=== PATIENT | female | born 1965 | race Caucasian/White ===

== ENCOUNTER → 2019-11-17 07:29 | Outpatient (CLI) | payer OTHER, SELFPAY ==
--- NOTE | ~2019-11-17 | US_ITS ---
EXAMINATION: US abdomen complete EXAM DATE: 11/17/2019 08:18 INDICATION: Elevated levels of serum enzymes. TECHNIQUE: Multiple grayscale and Doppler images of the complete abdomen were obtained (by a technolo tia who performed the scan) and subsequently reviewed. There is no prior study for comparison. FINDINGS: The abdominal aorta is normal in caliber. Visualized portion IVC is patent. The pancreatic head a nd body are normal in appearance. The pancreatic tail is not visualized. The liver has normal echogenicity and contour. There are no focal liver lesions identified. There is no evidence of intrahepatic biliary duct dilation. Portal venous flow was seen in the hepatopedal , normal direction and has normal Doppler waveform. Common bile duct measures 3 mm, which is normal. The gallbladder fossa is unremarkable. Right kidney: There is normal contour and echogenicity. It measures 10.3 x 5.0 x 4.9 centimeters. There are no focal renal lesions identified. There is no hydronephrosis. Left kidney: There is normal contour and echogenicity. It measures 10.7 x 5.7 x 4.9 centimeters. T here are no focal renal lesions identified. There is no hydronephrosis. The spleen measures 7.5 centimeters and is morphologically normal. IMPRESSION: 1. Unremarkable complete abdominal ultrasound exam. Reviewed, dictated and finalized at location A. HAND
== END ==
PROVIDERS: PCP Physician Assistant; Visit Provider Physician Assistant
DX: R74.8 Abnormal levels of other serum enzymes (principal)
CPT/HCPCS: 76700

== ENCOUNTER → 2021-02-03 16:55 | Outpatient (CLI) | payer OTHER, SELFPAY ==
--- NOTE | ~2021-02-03 | XR_ITS ---
EXAMINATION: XR shoulder RT min 2V DATE: 02/03/2021 18:53 INDICATION: Right shoulder pain. TECHNIQUE: 4 views of right shoulder were obtained. COMPARISON: None. FINDINGS: Bone alignment is normal. No fracture. There is mild osteoarthritis of glenohumeral joint a nd severe osteoarthritis of acromioclavicular joint. IMPRESSION: 1. Polyarticular osteoarthritis. Reviewed, dictated and finalized at location A.
== END ==
PROVIDERS: PCP Family Medicine; Visit Provider Physician Assistant
DX: M19.011 Primary osteoarthritis, right shoulder (principal)
CPT/HCPCS: 73030

== ENCOUNTER → 2021-06-26 16:09 | Outpatient (REF) | payer OTHER, SELFPAY | LOC: ANHLAB 16:09 | PROVIDERS: PCP Family Medicine; Visit Provider Nurse Practitioner | DX: R22.9 Localized swelling, mass and lump, unspecified (principal) | CPT/HCPCS: 88304 ==

== ENCOUNTER → 2022-03-23 10:33 | Outpatient (CLI) | payer OTHER, SELFPAY ==
--- NOTE | ~2022-03-23 | MM_ITS ---
EXAMINATION: MM screening abdoulaye BI w leroy HISTORY: Screening mammogram TECHNIQUE: Craniocaudal and mediolateral oblique 3-D tomosynthesis images were obtained and synthetic 2-D images were generated. CAD analysis was submitted and interpreted. COMPARISON: 05/13/2018 bilateral screening mammogram 08/20/2016 and 01/26/2016 diagnostic right mammogram and limited right breast ultrasound / bilateral screening mammogram examination BREAST PARENCHYMAL COMPOSITION: The breasts are almost entirely fatty. FINDINGS: There is no evidence of suspicious mass, calcification, or architectural distortion to sugg est malignancy in either breast. There has been no suspicious interval change. IMPRESSION: 1. No mammographic evidence of malignancy. 2. Recommend routine screening mammography in one year. BI-RADS Category 1: Negative Reviewed, dictated and finalized at location A.
== END ==
PROVIDERS: PCP Family Medicine; Visit Provider Nurse Practitioner Family
DX: Z12.31 Encounter for screening mammogram for malignant neoplasm of breast (principal)
CPT/HCPCS: 77063; 77067

== ENCOUNTER → 2023-03-11 10:03 | Outpatient (CLI) | payer OTHER, SELFPAY ==
--- NOTE | ~2023-03-11 | XR_ITS ---
XR knee RT min 4V 03/11/2023 11:23 Indication: Right knee pain Procedure: 4 views right knee Comparison: No prior studies for comparison. Findings: No fracture, subluxation or dislocation. No joint effusion. There is anatomic alignment. No significant joint space narrowing. Impression: 1: No significant bone or joint abnormality. Reviewed, dictated and finalized at location [] Impression: 1: No significant bone or joint abnormality.
--- NOTE | ~2023-03-11 | XR_ITS ---
XR knee LT min 4V 03/11/2023 11:23 INDICATION: Left knee pain PROCEDURE: 4 views left knee COMPARISON: No prior studies for comparison. FINDINGS: Fracture, dislocation or subluxation is not identified. No significant joint effusion. The soft tissues appear within normal limits. No foreign bodies are identified. IMPRESSION: 1: NO ACUTE BONE OR JOINT ABNORMALITY IDENTIFIED. Reviewed, dictated and finalized at location []
== END ==
PROVIDERS: PCP Family Medicine; Visit Provider Physician Assistant
DX: M25.562 Pain in left knee (principal); M25.561 Pain in right knee
CPT/HCPCS: 73564

== ENCOUNTER → 2023-06-04 12:23 | Outpatient (CLI) | payer OTHER, SELFPAY ==
--- NOTE | ~2023-06-04 | MR_ITS ---
EXAMINATION: MR knee LT wo con DATE: 06/04/2023 13:09 INDICATION: Pain in left knee, generalized pain and swelling, no history of trauma. TECHNIQUE: Magnetic resonance imaging (MRI) of the left knee was performed without intravenous contra st. Sequences included axial PD-weighted FS FSE, coronal PD-weighted FSE and PD-weighted FS FSE, sagi ttal PD-weighted FSE, and sagittal T2-weighted FS FSE. COMPARISON: X-ray left knee 03/11/2023 FINDINGS: Medial compartment: Blunting and fraying of the apex of the posterior horn. Small apical undersurface tear of the menisca l body. Moderate diffuse cartilage thinning. Mild osteophytosis. Lateral compartment: Fraying of the apex of the meniscal body. Mild diffuse cartilage thinning. Mild osteophytosis. Patellofemoral compartment: Focal area of full-thickness cartilage signal abnormality on the median ridge. Mild diffuse cartilage thinning. Mild osteophytosis. Retinacula intact. Ligaments and tendons: The ACL, PCL, MCL, and LCL are intact. Remaining flexor and extensor tendons are intact. Fluid: Moderate volume joint fluid. Osseous/other: No suspicious focal or diffuse marrow signal. IMPRESSION: Small apical tear of the posterior horn, medial meniscus. Small oblique undersurface tear of the body of the medial meniscus. Apical fraying of the menisci bilaterally. Tricompartmental osteoarthritis, moderate in the medial compartment. Moderate left knee joint effusion. Reviewed, dictated and finalized at location K. IMPRESSION: Small apical tear of the posterior horn, medial meniscus. Small oblique undersu rface tear of the body of the medial meniscus. Apical fraying of the menisci bi laterally. Tricompartmental osteoarthritis, moderate in the medial compartment. Moderate left knee joint effusion.
--- NOTE | ~2023-06-04 | MR_ITS ---
EXAMINATION: MR knee RT wo con DATE: 06/04/2023 12:58 INDICATION: Right knee pain. TECHNIQUE: Magnetic resonance imaging (MRI) of the right knee was performed without intravenous contr ast. Sequences included axial PD-weighted FS FSE, coronal PD-weighted FSE and PD-weighted FS FSE, sag ittal PD-weighted FSE, and sagittal T2-weighted FS FSE. COMPARISON: Right knee radiographs 03/11/2023 FINDINGS: Medial compartment: There is a complex tear involving posterior horn of medial meniscus. There is shallow partial-thickne ss cartilage loss of tibial condyle and femoral condyle. There are tiny osteophytes. Lateral compartment: Lateral meniscus is normal. There is cartilage surface irregularity of tibial condyle and femoral con dyle. Patellofemoral compartment: There is cartilage surface irregularity of patella and trochlea. There are tiny osteophytes. Ligaments and tendons: The anterior and posterior cruciate ligaments are normal. Medial collateral ligament is normal. There are changes of prior sprain of fibular collateral ligament characterized by increased signal intensi ty and thickening proximally. There is mild patellar tendinopathy. Fluid: There is a moderate-sized knee joint effusion. There is mild prepatellar and superficial infrapatella r bursitis. IMPRESSION: 1. Moderate tricompartment chondrosis. 2. Tear of medial meniscus. 3. Moderate-sized knee joint effusion. Reviewed, dictated and finalized at location A.
== END ==
PROVIDERS: PCP Family Medicine; Visit Provider Physician Assistant
DX: M25.461 Effusion, right knee (principal); M25.462 Effusion, left knee; S83.241A Other tear of medial meniscus, current injury, right knee, initial encounter; X58.XXXA Exposure to other specified factors, initial encounter; M17.12 Unilateral primary osteoarthritis, left knee
CPT/HCPCS: 73721

== ENCOUNTER → 2023-08-19 14:53 | Outpatient (CLI) | payer OTHER, SELFPAY ==
--- NOTE | ~2023-08-19 | MM_ITS ---
EXAMINATION: MM screening abdoulaye BI w leroy HISTORY: Screening mammogram TECHNIQUE: Craniocaudal and mediolateral oblique 3-D tomosynthesis images were obtained and synthetic 2-D images were generated. CAD analysis was submitted and interpreted. COMPARISON: 03/19/2022, 05/13/2018 bilateral screening mammogram examinations BREAST PARENCHYMAL COMPOSITION: The breasts are almost entirely fatty. FINDINGS: There is no evidence of suspicious mass, calcification, or architectural distortion to sugg est malignancy in either breast. There has been no suspicious interval change. IMPRESSION: 1. No mammographic evidence of malignancy. 2. Recommend routine screening mammography in one year. 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
== END ==
PROVIDERS: PCP Physician Assistant; Visit Provider Physician Assistant
DX: Z12.31 Encounter for screening mammogram for malignant neoplasm of breast (principal)
CPT/HCPCS: 77063; 77067

== ENCOUNTER 2025-08-11 12:41 | Outpatient (CLI) | payer OTHER, SELFPAY ==
--- NOTE | ~2025-08-11 | MM_ITS ---
EXAMINATION: MM screening abdoulaye BI w leroy HISTORY: Screening TECHNIQUE: Craniocaudal and mediolateral oblique 3-D tomosynthesis images were obtained and synthetic 2-D images were generated. CAD analysis was submitted and interpreted. COMPARISON: Comparison to multiple prior studies sequentially, with oldest reviewed study dated 01/13/2016. BREAST PARENCHYMAL COMPOSITION: Not Dense: The breasts are almost entirely fatty. FINDINGS: There is no evidence of suspicious mass, calcification, or architectural distortion to suggest malignancy in either breast. There has been no suspicious interval change. IMPRESSION: 1. No mammographic evidence of malignancy. 2. Recommend routine screening mammography in one year. BI-RADS Category 1: Negative Reviewed, dictated and finalized at location B. IFIED INCOME TAX PREPARER
--- OUTSIDE RECORDS SUMMARY | 2025-08-11 13:43 | XMS_ITS | Clinical Summary ---
Author Organization [facility] Address [address] [place] [id number] Care Team Providers Care Grades 9 Through 12 Teacher Name Role Phone Unavailable Primary Care Provider Unavailabl e Social History Tobacco Use Types Packs/Day Years Used Date Smoking Tobacco: Never Assessed Comments Unknown Sex and Gender Information Value Date Recorded Sex Assigned at Not on file Legal Sex Female 8:13 PM CDT Gender Identity Not on file Sexual Orientation Not on file Last Filed Vital Signs Vital Sign Reading Time Taken Comments Blood Pressure 120/78 10/16/2012 4:13 PM [employer] Pulse - - Temperature - - Respiratory Rate - - Oxygen Saturation - - Inhaled Oxygen Concentration - - Weight - - Height - - Body Mass Index - - Plan of Treatment Health Maintenance Due Date Last Done Comments Cervical Cancer Screening Pa p Smear (Age 30 to 64) Every 3 Years 1964 Colorectal Cancer Screening Colonoscopy (10 Years) 1964 Annual Physical 01/21/1967 Hepatitis C 01/21/1982 DTaP, Tdap and Td Vaccines ( 1 - Tdap) 01/21/1983 Cervical Cancer Screening Pa p with HPV Testing (Age 30 to 64) Every 5 Years 01/21/1994 Cervical Cancer Screening with HPV 01/21/1994 Mammogram Screening 2004 Pneumococcal Vaccine: 50+ Ye ars (1 of 1 - PCV) 01/21/2014 Zoster Vaccines (1 of 2) 01/21/2014 COVID-19 Vaccine ( - 2024-2 6 season) 2025 Influenza Adult (#1) 2025 RSV Immunization or 60+ Years (1 - 1-dose 75+ series) 01/21/2039 Hepatitis A Vaccines Aged Out No long er eligible based on patient's age to complete this topic Meningococcal B Vaccine Aged Out No l onger eligible based on patient's age to complete this topic Meningococcal Vaccine Aged Out No wallace omar eligible based on patient's age to complete this topic RSV Immunizations Under 20 Months Aged Out No longer eligible based on patient's age to complete this topic
== END 2025-08-11 12:42 | disposition home or self-care (01) ==
LOC: CHSIMG 12:41
PROVIDERS: PCP Family Medicine
DX: Z12.31 Encounter for screening mammogram for malignant neoplasm of breast (principal)
CPT/HCPCS: 77063; 77067

== ENCOUNTER 2025-09-09 03:38 | Day surgery (SDC) | payer OTHER, SELFPAY ==
[2025-08-18 10:06] VITALS: BMI 32.3
--- OUTSIDE RECORDS SUMMARY | 2025-09-09 03:41 | XMS_ITS | Clinical Summary ---
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
[2025-09-09 08:09] VITALS: BP 129/74; PULSE 77; RESP 16; TEMP 36.2; O2SAT 100; BMI 33.7
[2025-09-09] MEDS: LACTATED RINGERS 1,000 ML 150 ML IV CONT (08:18)
--- NOTE | 2025-09-09 08:32 | P.PNAN_ITS ---
Anes - Initial Pre Proc Eval Procedure: Operation Date: 09/09/25 09:30 Proposed Procedures p Screening Colonoscopy - Jitendra Franco MD Date/Time: 09/09/25 08:32 Surgeon: Jitendra Franco MD Pre Op Diagnosis: Personal history of colon polyps, unspecified Patient Data Age: 60 Gender: F Height: 1.68 m Weight: 94.8 kg Last Vital Signs Temp 97.2 F L 09/09/25 08:09 Pulse 77 09/09/25 08:09 Resp 16 09/09/25 08:09 BP 129/74 09/09/25 08:09 Pulse Ox 100 09/09/25 08:09 O2 Del Method Room Air 09/09/25 08:09 Allergies Allergy/AdvReac Type Severity Reaction Status Date / Time No Known Allergies Allergy Verified 09/09/25 08:07 Home Medications ?Medication ?Instructions ?Recorded ?Confirmed ?Type cetirizine 10 mg tablet (Zyrtec) 10 mg PO DAILY PRN al lergy 05/16/23 09/09/25 Rx symptoms #30 tabs omega 3-zcp-jgm-fish oil 60 mg-90 1 cap PO DAILY 06/1909/09/25 History mg-500 mg capsule (Fish Oil) clobetasol 0.05 % scalp solution 1 applic topical PRN PRN dry scalp 09/17/24 08/18/25 History fluocinolone acetonide oil 0.01 % 5 drp otic (ear) . q .h.s. 09/17/24 08/18/25 Rx ear drops (DermOtic Oil) external otitis 7 days #20 m L fenofibrate 160 mg tablet 160 mg PO DAILY #90 tabs 09/09/25 Rx rosuvastatin 5 mg tablet See Rx Instructions .Route 0 06/16/25 09/09/25 Rx .COMPLEX #90 tabs levothyroxine 112 mcg tablet 112 mcg PO DAILY #90 tabs 06/24/25 09/09/25 Rx (Synthroid) Patient hx anesthesia problems: none Family hx anesthesia problems: none Results Review: All pre-operative results and documents have been reviewed as part of the pre- operative evaluation. [facility] Past Medical History Medical History Bilateral knee effusions Degenerative arthritis of knee, bilateral Thyroid disorder MVP (mitral valve prolapse) High cholesterol Migraine with aura Wellness examination Surgical History Surgical History History of eyelid surgery History of cholecystectomy Family History Family History Sibling Asthma Father Family history of malignant neoplasm of brain Other Family history of diabetes mellitus in first degree relative Social History Social History Social History: Caffeine-diet soda Smoking packs per day: 0.5 Smoking cigarettes per day: 10.0 Years smoked: 35 Smoking pack-years: 17.50 Smoking status: Current every day smoker Tobacco type: cigarettes Second hand tobacco smoke exposure: No Alcohol intake: current Drinks per week: 5 Substance use: never Substance use type: does not use Lack of Transportation: No Lack of Food: Never True Current Housing: I Have Housing Concerned About Future Housing: No Difficulty Paying Gas/Electric Bills: No Difficulty Paying for Meds: No Currently Unemployed: No Education: High School Diploma/GED Difficulty w/ Childcare or Family Care: No Living arrangements: alone Occupation/Education: occupation Additional occupation/education comments: secretary [employer] Gender identity (if verbalized by the patient): Female Anes - Evneda Final PreProcedure Day of Procedure 09/09/25 08:32 Patient weight: obese Heart: regular rate and rhythm Lungs: clear to auscultation Airway: Mallampati scale class II Neurological: alert and oriented Last oral intake: >/= 8 hours ASA classification: III Emergent: no Anesthetic plan: proceed Anesthesia type and monitoring: general GIVS and standard monitoring Results Review: All pre-operative results and documents have been reviewed as part of the pre- operative evaluation. Informed Consent: The patient's anesthetic plan and its attendant risks and benefits were discussed with the patient/family/POA. Questions were solicited and answers provided to the satisfaction of the patient/family/POA.
[2025-09-09 08:59] VITALS: BP 93/46; PULSE 64; RESP 25; O2SAT 97
[2025-09-09 09:09] VITALS: BP 121/67; PULSE 68; RESP 12; O2SAT 100
[2025-09-09 09:19] VITALS: BP 125/70; PULSE 68; RESP 17; O2SAT 100
--- NOTE | 2025-09-13 10:20 | PM.IMHP2 ---
H&P: HPI History of Present Illness Date/Time: 09/13/25 10:20 Chief Complaint: Screening colonoscopy Narrative: This is the patient's first colonoscopy. There are no GI symptoms and there is no family history of colorectal cancer. Review of Systems Review of Systems: All systems reviewed & are unremarkable except as noted in HPI and below PMFSH Past Medical History Medical History Bilateral knee effusions Degenerative arthritis of knee, bilateral Thyroid disorder MVP (mitral valve prolapse) High cholesterol Migraine with aura Wellness examination Surgical History Surgical History History of eyelid surgery History of cholecystectomy Family History Family History Sibling Asthma Father Family history of malignant neoplasm of brain Other Family history of diabetes mellitus in first degree relative Social History Social History Social History: Caffeine-diet soda Smoking packs per day: 0.5 Smoking cigarettes per day: 10.0 Years smoked: 35 Smoking pack-years: 17.50 Smoking status: Current every day smoker Tobacco type: cigarettes Second hand tobacco smoke exposure: No Alcohol intake: current Drinks per week: 5 Substance use: never Substance use type: does not use Lack of Transportation: No Lack of Food: Never True Current Housing: I Have Housing Concerned About Future Housing: No Difficulty Paying Gas/Electric Bills: No Difficulty Paying for Meds: No Currently Unemployed: No Education: High School Diploma/GED Difficulty w/ Childcare or Family Care: No Living arrangements: alone Occupation/Education: occupation 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 q.h.s. 09/17/24 08/18/25 Rx ear drops (DermOtic Oil) external otitis 7 days #20 mL fenofibrate 160 mg tablet 160 mg PO DAILY #90 tabs 12/15/24 09/09/25 Rx rosuvastatin 5 mg tablet See Rx Instructions .Route 06/16/25 09/09/25 Rx .COMPLEX #90 tabs levothyroxine 112 mcg tablet 112 mcg PO DAILY #90 tabs 06/24/25 09/09/25 Rx (Synthroid) Allergies Allergy/AdvReac Type Severity Reaction Status Date / Time No Known Allergies Allergy Verified 09/09/25 08:07 Exam Const: General: cooperative and healthy appearing Resp: Effort & Inspection: normal respiratory effort and able to speak in complete sentences Auscultation: clear to auscultation bilaterally Cardio: Rate: regular rate Rhythm: regular rhythm GI: Inspection: normal to inspection GI Palp: No No hepatosplenomegaly present Auscultation: normal bowel sounds Rectal Exam: deferred Skin: General skin exam: normal color Psych: Appearance: grossly normal Mental Status: mental status grossly normal Assessment and Plan Assessment and plan (1) Encounter for screening colonoscopy: Code(s): Z12.11 - Encounter for screening for malignant neoplasm of colon Status: Acute Assessment and Plan: The patient is deemed a good candidate for the procedure. Consent signed. Will proceed.
== END 2025-09-09 09:25 | disposition home or self-care (01) ==
PROVIDERS: PCP Family Medicine; Referring Provider Physician Assistant; Visit Provider Internal Medicine Gastroenterology
PROC: 0DJD8ZZ Inspection of Lower Intestinal Tract, Via Natural or Artificial Opening Endoscopic (ICD-10-PCS; CPT 45378; principal; 2025-09-09 09:30)
DX: Z12.11 Encounter for screening for malignant neoplasm of colon (principal); M17.0 Bilateral primary osteoarthritis of knee; E07.9 Disorder of thyroid, unspecified; E78.00 Pure hypercholesterolemia, unspecified; F17.210 Nicotine dependence, cigarettes, uncomplicated; E66.9 Obesity, unspecified; Z68.33 Body mass index [BMI] 33.0-33.9, adult; Z98.890 Other specified postprocedural states; Z90.49 Acquired absence of other specified parts of digestive tract; Z86.0100 Personal history of colon polyps, unspecified; Z86.79 Personal history of other diseases of the circulatory system; Z80.8 Family history of malignant neoplasm of other organs or systems
CPT/HCPCS: 45378; J2003; J2704; J7120